=== PATIENT | male | born 1995 | race Caucasian/White ===

== ENCOUNTER 2021-10-22 13:51 | Emergency (ER) | payer MEDICAID ==
[~2021-10-22] VITALS: Ht 188 cm; Wt 98.0 kg
[2021-10-22] MEDS ORDERED: IBUPROFEN 400 MG TABLET PO ONE (14:30)
[2021-10-22] MEDS ORDERED: CEPH500C3 PO (16:38)
[2021-10-22 16:40] VITALS: BP 103/79
== END 2021-10-22 16:45 | disposition home or self-care (01) ==
LOC: EMS 13:56
DX: S50.02XA Contusion of left elbow, initial encounter (principal); F15.90 Other stimulant use, unspecified, uncomplicated; F17.210 Nicotine dependence, cigarettes, uncomplicated; W18.39XA Other fall on same level, initial encounter; Y93.89 Activity, other specified; Y92.89 Other specified places as the place of occurrence of the external cause; Y99.8 Other external cause status
CPT/HCPCS: 99283

== ENCOUNTER 2021-11-16 17:26 | Emergency (ER) | payer MEDICAID ==
[~2021-11-16] VITALS: Ht 182.9 cm; Wt 72.0 kg
[~2021-11-16 17:26] MED LIST: CEPH500C3 PO
[2021-11-16 18:02] VITALS: BP 96/56
== END 2021-11-16 20:21 | disposition left against medical advice (07) ==
LOC: EMS 17:40
DX: R11.2 Nausea with vomiting, unspecified (principal); Z53.21 Procedure and treatment not carried out due to patient leaving prior to being seen by health care provider